=== PATIENT | female | born 1950 | race Hispanic/Latino ===

== ENCOUNTER 2018-03-01 09:12 | Day surgery (SDC) | payer MEDICARE, OTHER ==
[2018-03-01] MEDS ORDERED: Propofol 10 mg/ml Inj (20 ML) ONE ×2 (10:32→11:16)
[2018-03-01 11:49] VITALS: TEMP 97.3
[2018-03-01 12:02] VITALS: O2SAT 99
[2018-03-01 12:31] VITALS: BP 128/59; PULSE 54; RESP 12
== END 2018-03-01 12:30 | disposition home or self-care (01) ==
LOC: C.ENDO 09:12
PROVIDERS: ATTEND Internal Medicine Gastroenterology
DX: Z12.11 Encounter for screening for malignant neoplasm of colon (principal); D12.2 Benign neoplasm of ascending colon; D12.0 Benign neoplasm of cecum; D12.7 Benign neoplasm of rectosigmoid junction; D12.3 Benign neoplasm of transverse colon; K64.8 Other hemorrhoids
CPT/HCPCS: 45380; 45385; 88305; J2704

== ENCOUNTER 2018-05-25 06:36 | Day surgery (SDC) | payer MEDICARE, OTHER ==
[2018-05-25] MEDS ORDERED: Propofol 10 mg/ml Inj (20 ML) ONE ×2 (07:51→08:26)
[2018-05-25] MEDS ORDERED: Lidocaine Hydrochloride 5 ML INJ ONE (07:51)
--- NOTE | 2018-05-25 08:02 | CP.SDSHP ---
Same Day Surgery H & P - History Proposed Procedure: colonoscopy Pre-Op Diagnosis: history of colon polyps - Allergies Allergies: Allergies Penicillins Allergy (Verified 03/01/18 09:46) REDNESS - Physical Exam General Appearance: NAD Vital Signs: Vital Signs 05/25/18 06:48 Temperature 97.1 F L Pulse Rate 67 Respiratory 19 Rate Blood Pressure 119/73 O2 Sat by Pulse 99 Oximetry Mental Status: Alert & Oriented x3 Neuro: WNL Heart: WNL Lungs: WNL GI: WNL - {Optional Preform as Required} Abdomen: WNL - Impression Pt. Evaluated Today:Candidate for Anesthesia & Procedure: Yes - Date & Time Date: 05/25/18 Time: 08:02 Short Stay Discharge - Short Stay Discharge Admitting Diagnosis/Reason for Visit: H/O COLON POLYPS Disposition: HOME/ ROUTINE
[2018-05-25] MEDS ORDERED: Lactated Ringer's 1,000 ML IV ONE (08:05)
[2018-05-25] MEDS ORDERED: Lactated Ringer's 500 ML IV SCH (08:15)
[2018-05-25 08:54] VITALS: O2SAT 100
[2018-05-25 09:29] VITALS: PULSE 60
[2018-05-25 10:00] VITALS: BP 119/62; RESP 14; TEMP 97.2
== END 2018-05-25 09:55 | disposition home or self-care (01) ==
LOC: C.ENDO 06:36
PROVIDERS: ATTEND Internal Medicine Gastroenterology
DX: Z86.010 Personal history of colon polyps (principal); D12.2 Benign neoplasm of ascending colon; D12.3 Benign neoplasm of transverse colon; K64.8 Other hemorrhoids
CPT/HCPCS: 45380; 45385; 88305; J2704; J3010; J7120

== ENCOUNTER 2018-06-02 01:21 | Inpatient (IN) | payer MEDICARE, OTHER ==
[2018-06-02] MEDS ORDERED: Sodium Chloride 0.9% 1,000 ML IV ONE (02:01)
[2018-06-02] MEDS ORDERED: Pantoprazole 80 MG in Sodium Chloride 0.9% 100 ML IV STA (02:01)
--- NOTE | 2018-06-02 02:01 | C.PDOC ---
History Of Present Illness Patient presents to the ER with a complaint of rectal bleeding. Patient had a colonoscopy a week ago and is scheduled for partial colon removal for large transverse polyp with Dr. Segovia. She reports tonight having an episode of bright red blood per rectum. Denies fever, chills, nausea, vomiting, or pain. Time Seen by Provider: 06/02/18 01:55 Chief Complaint (Nursing): GI Problem History Per: Patient History/Exam Limitations: no limitations Onset/Duration Of Symptoms: Days Current Symptoms Are (Timing): Still Present Number Of Bleeding Episodes: Multiple: (3) Amount of Blood Loss: Large Severity: Moderate Pain Scale Rating Of: 4 Quality Of Discomfort: Unable To Describe Associated Symptoms: Rectal Bleeding. denies: Nausea, Vomiting, Other (Fever, Chills) Modifying Factors: None Recent travel outside of the [place]: No Additional History Per: Patient Past Medical History Reviewed: Historical Data, Nursing Documentation, Vital Signs Vital Signs: Last Vital Signs Temp 98.3 F 06/02/18 01:35 Pulse 65 06/02/18 01:35 Resp 16 06/02/18 01:35 BP 142/65 06/02/18 01:35 Pulse Ox 100 06/02/18 01:35 - Medical History PMH: Colonic Polyps Denies: Chronic Kidney Disease Family History: States: Unknown Family Hx - Social History Hx Alcohol Use: No Hx Substance Use: No Review Of Systems Constitutional: Negative for: Fever, Chills Cardiovascular: Negative for: Chest Pain, Palpitations Respiratory: Negative for: Cough, Shortness of Breath Gastrointestinal: Positive for: Other (Rectal bleeding). Negative for: Nausea, Vomiting, Abdominal Pain Neurological: Negative for: Weakness, Numbness Physical Exam - Physical Exam Appears: Non-toxic Skin: Warm, Dry Head: Normacephalic Eye(s): bilateral: Normal Inspection Oral Mucosa: Moist Neck: Trachea Midline, Supple Chest: Symmetrical, No Tenderness Cardiovascular: Rhythm Regular Respiratory: No Rales, No Rhonchi, No Wheezing Gastrointestinal/Abdominal: Soft, No Tenderness Rectal: Heme Positive, No Tenderness, Other (brbpr) Back: No CVA Tenderness Extremity: Normal ROM Extremity: Bilateral: Atraumatic Pulses: Left Dorsalis Pedis: Normal, Right Dorsalis Pedis: Normal Neurological/Psych: Oriented x3 Gait: Steady ED Course And Treatment - Laboratory Results Result Diagrams: 06/02/18 02:31 06/02/18 02:31 ECG: Interpreted By Me, Viewed By Me ECG Rhythm: Sinus Rhythm, Nonspecific Changes O2 Sat by Pulse Oximetry: 100 (Room air) Pulse Ox Interpretation: Normal Progress Note: Blood work, EKG, urinalysis, and occult blood test ordered. Protonix and IV fluids administered. Disposition Discussed With Dr.: Michael Gonsales Comment: accepted the patient onhis service and took over the care at 3:30 AM Doctor Will See Patient In The: ED Counseled Patient/Family Regarding: Studies Performed, Diagnosis - Disposition Disposition: HOSPITALIZED Disposition Time: 02:00 Condition: GUARDED Forms: [facility] ([place]) - POA Present On Arrival: None - Clinical Impression Clinical Impression: Lower GI bleed - Scribe Statement The provider has reviewed the documentation as recorded by the Scribe Matteo Andres All medical record entries made by the Scribe were at my direction and personally dictated by me. I have reviewed the chart and agree that the record accurately reflects my personal performance of the history, physical exam, medical decision making, and the department course for this patient. I have also personally directed, reviewed, and agree with the discharge instructions and disposition. Decision To Admit - Pt Status Changed To: Hospital Disposition Of: Inpatient - Admit Certification Admit to Inpatient:: After my assessment, the patient will require hos pitalization for at least two midnights. This is because of the severity of symptoms shown, intensity of services needed, and/or the medical risk in this patient being treated as an outpatient. - InPatient: Physician Admission Certification: I certify that this patient requires 2 or more midnights of care for the following reason:: After my assessment, the p atient will require hospitalization for at least two midnights. This is because of the severity of symptoms shown, intensity of services needed, and/or the medical risk in this patient being treated as an outpatient. - . Bed Request Type: Telemetry Admitting Physician: Michael Gonsales Patient Diagnosis: Lower GI bleed
[2018-06-02] MEDS ORDERED: Sodium Chloride 0.9% 1,000 ML ONE (02:10)
[2018-06-02 02:44] LABS: BASO # 0.1 K/uL (0.0-0.2); BASO % 0.6 % (0.0-2.0); EOS # 0.1 K/uL (0.0-0.7); EOS % 1.2 % (0.0-4.0); LYMPH # 2.5 K/uL (1.0-4.3); MEAN CELL VOLUME 87.7 fL (81.0-99.0); MEAN CORPUSCULAR HEMOGLOBIN 28.8 pg (27.0-31.0); MEAN CORPUSCULAR HGB CONC 32.8 g/dL (33.0-37.0); MEAN PLATELET VOLUME 9.7 fL (7.2-11.7); MONO # 0.5 K/uL (0.0-0.8); MONO % 5.9 % (0.0-10.0); NEUT # 5.5 K/uL (1.8-7.0); NEUT % 63.3 % (50.0-75.0); RBC 4.53 Mil/uL (3.80-5.20); RED CELL DISTRIBUTION WIDTH 13.6 % (11.5-14.5); SQUAMOUS EPITHIAL < 1 /hpf (0-5); URINE BILIRUBIN NEGATIVE (NEGATIVE); URINE BLOOD NEGATIVE (NEGATIVE); URINE CLARITY Clear (Clear); URINE COLOR Straw (YELLOW); URINE GLUCOSE (UA) NORMAL (Normal); URINE LEUKOCYTE ESTERASE NEG Leu/uL (Negative); URINE PROTEIN NEGATIVE (NEGATIVE); URINE UROBILINOGEN NORMAL mg/dL (0.2-1.0); WHITE BLOOD COUNT 8.8 K/uL (4.8-10.8)
[2018-06-02 03:04] LABS: INR 1.1; PROTHROMBIN TIME 11.7 SECONDS (9.7-12.2)
[2018-06-02 03:16] LABS: ALB/GLOB RATIO 1.6 (1.0-2.1); ALT/SGPT 19 U/L (9-52); AST/SGOT 16 U/L (14-36); BLOOD UREA NITROGEN 22 mg/dL (7-17); CALCIUM 8.3 mg/dl (8.6-10.4); GFR NON-AFRICAN AMERICAN > 60
--- NOTE | 2018-06-02 03:43 | CP.PCM.HP ---
<[employer]okiMu - Last Filed: 06/02/18 04:24> History of Present Illness - History of Present Illness History of Present Illness: PGY-1 History and Physical for Dr. Gonsales Patient is a 67 year old female with past medical history of colonic polyps presenting to the ED with 2 episodes of bright red blood per rectum that began at 11pm. Of note, patient had a colonoscopy performed last week by Dr. Zepeda and is scheduled for partial colon removal for large sessile transverse polyp with Dr. Segovia on Tuesday. No other bleeding episode noted prior to tonight or acute somatic pain. Patient denies any fevers/chills, headaches, dizziness, changes in vision, chest pain, palpitations, sob, cough, abdominal pain, n/v/d/c, dysuria, melena. 12 pt ROS reviewed and otherwise negative. PMHx: colonic polyps PSHx: colonoscopy (05/25/18), scheduled for partial colon removal for large sessile transverse polyp on Tuesday Allergies: PCN--redness Home Medications: None Family hx: unknown Social Hx: Denies alcohol, tobacco, illicit drug use Present on Admission - Present on Admission Any Indicators Present on Admission: No Review of Systems - Review of Systems All systems: reviewed and no additional remarkable complaints except Review of Systems: as per HPI Past Patient History - Past Medical History & Family History Past Medical History?: Yes - Past Social History Smoking Status: Never Smoked - CARDIAC Hx Cardiac Disorders: Yes Hx Angina: Yes (TIETZE'S DISEASE) Other/Comment: PT STATES SHE HAD A HISTORY OF PVC ,10 YEARS AGO, ON NO MED. HAD STRESS/ CARDIAC WORKUP. - PULMONARY Hx Respiratory Disorders: Yes (SOME NIGHT DYSPNEA) - NEUROLOGICAL Hx Neurological Disorder: Yes Hx Vertigo: Yes - HEENT Hx HEENT Problems: No - RENAL Hx Chronic Kidney Disease: No - ENDOCRINE/METABOLIC Hx Endocrine Disorders: No - HEMATOLOGICAL/ONCOLOGICAL Hx Blood Disorders: No - INTEGUMENTARY Hx Dermatological Problems: No - GASTROINTESTINAL Hx Gastrointestinal Disorders: Yes - GENITOURINARY/GYNECOLOGICAL Hx Genitourinary Disorders: No - PSYCHIATRIC Hx Substance Use: No - SURGICAL HISTORY Hx Surgeries: Yes Other/Comment: DENTAL WORK - ANESTHESIA Hx Anesthesia: Yes Hx Anesthesia Reactions: No Hx Malignant Hyperthermia: No Meds Allergies/Adverse Reactions: Allergies Allergy/AdvReac Type Severity Reaction Status Date / Time Penicillins Allergy REDNESS Verified 06/02/18 01:40 Physical Exam - Constitutional Appears: Non-toxic, No Acute Distress - Head Exam Head Exam: ATRAUMATIC, NORMAL INSPECTION, NORMOCEPHALIC - Eye Exam Eye Exam: EOMI, Normal appearance, PERRL Pupil Exam: NORMAL ACCOMODATION - ENT Exam ENT Exam: Mucous Membranes Moist, Normal Exam - Neck Exam Neck exam: Positive for: Full Rom, Normal Inspection. Negative for: Tenderness - Respiratory Exam Respiratory Exam: Clear to Auscultation Bilateral, NORMAL BREATHING PATTERN. absent: Accessory Muscle Use, Rales, Rhonchi, Wheezes, Respiratory Distress, Stridor - Cardiovascular Exam Cardiovascular Exam: REGULAR RHYTHM, +S1, +S2 - GI/Abdominal Exam GI & Abdominal Exam: Normal Bowel Sounds, Soft. absent: Distended, Firm, Guarding, Organomegaly, Rebound, Rigid, Tenderness - Rectal Exam Rectal Exam: Bloody Stool, NORMAL INSPECTION. absent: Hemorrhoids - Extremities Exam Extremities exam: Positive for: normal capillary refill, normal inspection, pedal pulses present. Negative for: calf tenderness, pedal edema - Back Exam Back exam: NORMAL INSPECTION - Neurological Exam Neurological exam: Alert, CN II-XII Intact, Oriented x3 - Psychiatric Exam Psychiatric exam: Normal Affect, Normal Mood - Skin Skin Exam: Dry, Intact, Normal Color, Warm Results - Vital Signs Recent Vital Signs: Last Vital Signs Temp 98.3 F 06/02/18 01:35 Pulse 65 06/02/18 01:35 Resp 16 06/02/18 01:35 BP 142/65 06/02/18 01:35 Pulse Ox 100 06/02/18 03:32 - Labs Result Diagrams: 06/02/18 02:31 06/02/18 02:31 Labs: Laboratory Results - last 24 hr 06/02/18 06/02/18 06/02/18 02:01 02:31 02:31 WBC 8.8 RBC 4.53 Hgb 13.0 Hct 39.7 MCV 87.7 MCH 28.8 MCHC 32.8 L RDW 13.6 Plt Count 193 MPV 9.7 Neut % (Auto) 63.3 Lymph % (Auto) 29.0 [place] % (Auto) 5.9 Eos % (Auto) 1.2 Baso % (Auto) 0.6 Neut # (Auto) 5.5 Lymph # (Auto) 2.5 [place] # (Auto) 0.5 Eos # (Auto) 0.1 Baso # (Auto) 0.1 PT 11.7 INR 1.1 APTT 31 Sodium Potassium Chloride Carbon Dioxide Anion Gap BUN Creatinine Est GFR ( Amer) Est GFR (Non-Af Amer) Random Glucose Calcium Total Bilirubin AST ALT Alkaline Phosphatase Total Protein Albumin Globulin Albumin/Globulin Ratio Urine Color Urine Clarity Urine pH Ur Specific [place] Urine Protein Urine Glucose (UA) Urine Ketones Urine Blood Urine Nitrate Urine Bilirubin Urine Urobilinogen Ur Leukocyte Esterase Urine RBC (Auto) Ur Squamous Epith Cells Stool Occult Blood Positive H 06/02/18 06/02/18 02:31 02:31 WBC RBC Hgb Hct MCV MCH MCHC RDW Plt Count MPV Neut % (Auto) Lymph % (Auto) [place] % (Auto) Eos % (Auto) Baso % (Auto) Neut # (Auto) Lymph # (Auto) [place] # (Auto) Eos # (Auto) Baso # (Auto) PT INR APTT Sodium 136 Potassium 4.1 Chloride 103 Carbon Dioxide 28 Anion Gap 10 BUN 22 H Creatinine 0.8 Est GFR ( Amer) > 60 Est GFR (Non-Af Amer) > 60 Random Glucose 100 Calcium 8.3 L Total Bilirubin 0.3 AST 16 ALT 19 Alkaline Phosphatase 124 Total Protein 6.5 Albumin 4.0 Globulin 2.5 Albumin/Globulin Ratio 1.6 Urine Color Straw Urine Clarity Clear Urine pH 5.0 Ur Specific [place] 1.014 Urine Protein Negative Urine Glucose (UA) Normal Urine Ketones Negative Urine Blood Negative Urine Nitrate Negative Urine Bilirubin Negative Urine Urobilinogen Normal Ur Leukocyte Esterase Neg Urine RBC (Auto) < 1 Ur Squamous Epith Cells < 1 Stool Occult Blood Assessment & Plan - Assessment and Plan (Free Text) Assessment: 67 year old female with pmhx of colonic polyps presenting to ED with new onset bright red blood per rectum that began earlier today. Plan: Lower GI bleed -H/H stable -vs snl -PT/INR wnl -FOBT positive -EKG: NSR at 64 bpm -telemetry monitoring -repeat FOBT -type and screen -am labs, continue to monitor H/H -clear liquid diet -GI (Dr. Zepeda) consulted -Surgery (Dr. Segovia) consulted Hx colonic polyps PPx, Diet, Disposition -DVT ppx: scds, chemical anticoagulation held 2/2 bleeding episode -GI ppx: protonix -Diet: NPO Case discussed with Dr. Ilda Telles DO, PGY-1 <Michael Gonsales P - Last Filed: 06/02/18 08:19> Results - Vital Signs Recent Vital Signs: Last Vital Signs Temp 98.4 F 06/02/18 07:51 Pulse 69 06/02/18 07:51 Resp 20 06/02/18 07:51 BP 123/75 06/02/18 07:51 Pulse Ox 97 06/02/18 07:51 - Labs Result Diagrams: 06/02/18 02:31 06/02/18 02:31 Labs: Laboratory Results - last 24 hr 06/02/18 06/02/18 06/02/18 02:01 02:31 02:31 WBC 8.8 RBC 4.53 Hgb 13.0 Hct 39.7 MCV 87.7 MCH 28.8 MCHC 32.8 L RDW 13.6 Plt Count 193 MPV 9.7 Neut % (Auto) 63.3 Lymph % (Auto) 29.0 [place] % (Auto) 5.9 Eos % (Auto) 1.2 Baso % (Auto) 0.6 Neut # (Auto) 5.5 Lymph # (Auto) 2.5 [place] # (Auto) 0.5 Eos # (Auto) 0.1 Baso # (Auto) 0.1 PT 11.7 INR 1.1 APTT 31 Sodium Potassium Chloride Carbon Dioxide Anion Gap BUN Creatinine Est GFR ( Amer) Est GFR (Non-Af Amer) Random Glucose Calcium Total Bilirubin AST ALT Alkaline Phosphatase Total Protein Albumin Globulin Albumin/Globulin Ratio Urine Color Urine Clarity Urine pH Ur Specific [place] Urine Protein Urine Glucose (UA) Urine Ketones Urine Blood Urine Nitrate Urine Bilirubin Urine Urobilinogen Ur Leukocyte Esterase Urine RBC (Auto) Ur Squamous Epith Cells Stool Occult Blood Positive H Blood Type Antibody Screen 06/02/18 06/02/18 06/02/18 02:31 02:31 02:31 WBC RBC Hgb Hct MCV MCH MCHC RDW Plt Count MPV Neut % (Auto) Lymph % (Auto) [place] % (Auto) Eos % (Auto) Baso % (Auto) Neut # (Auto) Lymph # (Auto) [place] # (Auto) Eos # (Auto) Baso # (Auto) PT INR APTT Sodium 136 Potassium 4.1 Chloride 103 Carbon Dioxide 28 Anion Gap 10 BUN 22 H Creatinine 0.8 Est GFR ( Amer) > 60 Est GFR (Non-Af Amer) > 60 Random Glucose 100 Calcium 8.3 L Total Bilirubin 0.3 AST 16 ALT 19 Alkaline Phosphatase 124 Total Protein 6.5 Albumin 4.0 Globulin 2.5 Albumin/Globulin Ratio 1.6 Urine Color Straw Urine Clarity Clear Urine pH 5.0 Ur Specific [place] 1.014 Urine Protein Negative Urine Glucose (UA) Normal Urine Ketones Negative Urine Blood Negative Urine Nitrate Negative Urine Bilirubin Negative Urine Urobilinogen Normal Ur Leukocyte Esterase Neg Urine RBC (Auto) < 1 Ur Squamous Epith Cells < 1 Stool Occult Blood Blood Type O POSITIVE Antibody Screen Negative Attending/Attestation - Attestation I have personally seen and examined this patient.: Yes I have fully participated in the care of the patient.: Yes I have reviewed all pertinent clinical information: Yes Notes (Text): 06/02/18 08:18 3 episodes of bright red blood, recent tattooing of the rectal poly for surgical resection, hemodyanamically stable, plan surgery and gi eval, observe for recurrent bleeding. See orders for detail.
[2018-06-02] MEDS ORDERED: Sodium Chloride 0.9% 1,000 ML IV SCH (04:00)
--- NOTE | 2018-06-02 08:00 | CP.PCM.PN ---
Subjective - Date & Time of Evaluation Date of Evaluation: 06/02/18 Time of Evaluation: 08:00 - Subjective Subjective: PGY-1 Alla Doherty D.O. Medicine progress for for Dr. Arenas's service: Patient was seen and examined this morning. Today patient reports that she is tired as she did not get a lot of sleep last night due to commotion in the ED. She reports two additional incidents this morning of bright red blood in the toilet but reports that the blood quantity seems to be subsiding every time she uses the bathroom. Patient denies fever, chills, headaches, dizziness, vision changes, chest pain, palpitations, SOB, cough, abdominal pain, n/v, d/c, dysuria, melena. Objective - Vital Signs/Intake and Output Vital Signs (last 24 hours): Temp Pulse Resp BP Pulse Ox 98.4 F 69 20 123/75 97 06/02/18 07:51 06/02/18 07:51 06/02/18 07:51 06/02/18 07:51 06/02/18 07:51 - Medications Medications: Current Medications Pantoprazole Sodium (Protonix Inj) 40 mg IVP DAILY BILL - Labs Labs: 06/02/18 02:31 06/02/18 02:31 PT 11.7 SECONDS (9.7-12.2) 06/02/18 02:31 INR 1.1 06/02/18 02:31 APTT 31 SECONDS (21-34) 06/02/18 02:31 - Constitutional Appears: Non-toxic, No Acute Distress - Head Exam Head Exam: ATRAUMATIC, NORMAL INSPECTION - Eye Exam Eye Exam: EOMI, Normal appearance, PERRL - ENT Exam ENT Exam: Mucous Membranes Moist - Neck Exam Neck Exam: Normal Inspection - Respiratory Exam Respiratory Exam: Clear to Ausculation Bilateral, NORMAL BREATHING PATTERN - Cardiovascular Exam Cardiovascular Exam: RRR, +S1, +S2. absent: Tachycardia - GI/Abdominal Exam GI & Abdominal Exam: Soft. absent: Distended, Tenderness - Rectal Exam Rectal Exam: Deferred (by patient) - Extremities Exam Extremities Exam: Normal Inspection. absent: Pedal Edema - Back Exam Back Exam: NORMAL INSPECTION - Neurological Exam Neurological Exam: Alert, Awake, CN II-XII Intact, Normal Gait, Oriented x3 - Psychiatric Exam Psychiatric exam: Normal Affect, Normal Mood - Skin Skin Exam: Dry, Normal Color, Warm Assessment and Plan - Assessment and Plan (Free Text) Assessment: Patient is a 67 yo female who presented with bright red blood per rectum. Patient had a colonoscopy last week that found an unresectable sessile polyp. Patient scheduled to have surgery on Tuesday. Plan: Bright red blood per rectum- likely 2/2 sessile polyp (colonoscopy on 05/25/18) - Hgb wnl (13) on admission - PT/INR/PTT wnl - FOBT positive - HR and BP wnl - Monitor H&H and vitals - Clear liquids - Surgery consulted (Juliette)- colon resection Monday 06/05 - GI consulted (Duane)- monitor overnight, DC if bleeding resolves, if not may need scope prior to operation Ppx: VTE: SCDs, chemical anticoag contraindicated GI: PTX 40 mg IV daily Code status: full code Case discussed with attending, Dr. Arenas.
--- NOTE | 2018-06-02 08:12 | CP.PCM.CON ---
History of Present Illness - History of Present Illness History of Present Illness: Surgery Consult Note for Dr. Segovia Consult: GI Bleed HPI: 67 year old female, no significant past medical history, consulted for GI bleed. Patient states she had her first colonoscopy in February that showed a few polyps and one large sessile polyp that was unable to be removed. Surgery was scheduled for the mass in May. Patient had a repeat colonoscopy to tattoo mass earlier last week. Yesterday she noticed bright red blood per rectum with bowel movement. She has not had any further bleeding episodes while in the ER. Patient did not require transfusions. Denies any abdominal pain, nausea, vomiting, cramping, diarrhea, or constipation. She is tolerating her diet. She is scheduled for surgery Tuesday06/05/18 for removal of mass. PMH: Denies PSH: Colonoscopy (02/2018) FH: Noncontributory SH: Social drinker, denies tobacco or substance abuse ALL: PCNs Meds: See MAR Review of Systems - Constitutional Constitutional: absent: Chills, Fever, Weakness - EENT Eyes: absent: Blurred Vision, Change in Vision Nose/Mouth/Throat: absent: Nasal Congestion, Nasal Discharge - Cardiovascular Cardiovascular: absent: Chest Pain, Dyspnea - Respiratory Respiratory: absent: Cough, Dyspnea - Gastrointestinal Gastrointestinal: absent: Abdominal Pain, Nausea, Vomiting - Genitourinary Genitourinary: absent: Difficulty Urinating, Dysuria - Musculoskeletal Musculoskeletal: absent: Back Pain, Neck Pain - Integumentary Integumentary: absent: Bleeding Lesions, Changing Lesions - Neurological Neurological: absent: Confusion, Dizziness - Psychiatric Psychiatric: absent: Anxiety, Depression Past Patient History - Past Medical History & Family History Past Medical History?: Yes - Past Social History Smoking Status: Never Smoked - CARDIAC Hx Cardiac Disorders: Yes Hx Angina: Yes (TIETZE'S DISEASE) Other/Comment: PT STATES SHE HAD A HISTORY OF PVC ,10 YEARS AGO, ON NO MED. HAD STRESS/ CARDIAC WORKUP. - PULMONARY Hx Respiratory Disorders: Yes (SOME NIGHT DYSPNEA) - NEUROLOGICAL Hx Neurological Disorder: Yes Hx Vertigo: Yes - HEENT Hx HEENT Problems: No - RENAL Hx Chronic Kidney Disease: No - ENDOCRINE/METABOLIC Hx Endocrine Disorders: No - HEMATOLOGICAL/ONCOLOGICAL Hx Blood Disorders: No - INTEGUMENTARY Hx Dermatological Problems: No - GASTROINTESTINAL Hx Gastrointestinal Disorders: Yes - GENITOURINARY/GYNECOLOGICAL Hx Genitourinary Disorders: No - PSYCHIATRIC Hx Substance Use: No - SURGICAL HISTORY Hx Surgeries: Yes Other/Comment: DENTAL WORK - ANESTHESIA Hx Anesthesia: Yes Hx Anesthesia Reactions: No Hx Malignant Hyperthermia: No Meds Allergies/Adverse Reactions: Allergies Allergy/AdvReac Type Severity Reaction Status Date / Time Penicillins Allergy REDNESS Verified 06/02/18 01:40 - Medications Medications: Current Medications Pantoprazole Sodium (Protonix Inj) 40 mg IVP DAILY BILL Physical Exam - Constitutional Appears: Well, Non-toxic, No Acute Distress - Head Exam Head Exam: ATRAUMATIC, NORMAL INSPECTION, NORMOCEPHALIC - Eye Exam Eye Exam: EOMI - ENT Exam ENT Exam: Mucous Membranes Moist - Respiratory Exam Respiratory Exam: NORMAL BREATHING PATTERN. absent: Respiratory Distress - Cardiovascular Exam Cardiovascular Exam: REGULAR RHYTHM. absent: Tachycardia - GI/Abdominal Exam GI & Abdominal Exam: Normal Bowel Sounds, Soft. absent: Distended, Guarding, Rebound, Tenderness - Neurological Exam Neurological exam: Alert, Oriented x3 - Psychiatric Exam Psychiatric exam: Normal Affect, Normal Mood - Skin Skin Exam: Dry, Intact, Normal Color, Warm Results - Vital Signs Recent Vital Signs: Last Vital Signs Temp 98.4 F 06/02/18 07:51 Pulse 69 06/02/18 07:51 Resp 20 06/02/18 07:51 BP 123/75 06/02/18 07:51 Pulse Ox 97 06/02/18 07:51 - Labs Result Diagrams: 06/02/18 02:31 06/02/18 02:31 Labs: Laboratory Results - last 24 hr 06/02/18 06/02/18 06/02/18 02:01 02:31 02:31 WBC 8.8 RBC 4.53 Hgb 13.0 Hct 39.7 MCV 87.7 MCH 28.8 MCHC 32.8 L RDW 13.6 Plt Count 193 MPV 9.7 Neut % (Auto) 63.3 Lymph % (Auto) 29.0 [place] % (Auto) 5.9 Eos % (Auto) 1.2 Baso % (Auto) 0.6 Neut # (Auto) 5.5 Lymph # (Auto) 2.5 [place] # (Auto) 0.5 Eos # (Auto) 0.1 Baso # (Auto) 0.1 PT 11.7 INR 1.1 APTT 31 Sodium Potassium Chloride Carbon Dioxide Anion Gap BUN Creatinine Est GFR ( Amer) Est GFR (Non-Af Amer) Random Glucose Calcium Total Bilirubin AST ALT Alkaline Phosphatase Total Protein Albumin Globulin Albumin/Globulin Ratio Urine Color Urine Clarity Urine pH Ur Specific [place] Urine Protein Urine Glucose (UA) Urine Ketones Urine Blood Urine Nitrate Urine Bilirubin Urine Urobilinogen Ur Leukocyte Esterase Urine RBC (Auto) Ur Squamous Epith Cells Stool Occult Blood Positive H Blood Type Antibody Screen 06/02/18 06/02/18 06/02/18 02:31 02:31 02:31 WBC RBC Hgb Hct MCV MCH MCHC RDW Plt Count MPV Neut % (Auto) Lymph % (Auto) [place] % (Auto) Eos % (Auto) Baso % (Auto) Neut # (Auto) Lymph # (Auto) [place] # (Auto) Eos # (Auto) Baso # (Auto) PT INR APTT Sodium 136 Potassium 4.1 Chloride 103 Carbon Dioxide 28 Anion Gap 10 BUN 22 H Creatinine 0.8 Est GFR ( Amer) > 60 Est GFR (Non-Af Amer) > 60 Random Glucose 100 Calcium 8.3 L Total Bilirubin 0.3 AST 16 ALT 19 Alkaline Phosphatase 124 Total Protein 6.5 Albumin 4.0 Globulin 2.5 Albumin/Globulin Ratio 1.6 Urine Color Straw Urine Clarity Clear Urine pH 5.0 Ur Specific [place] 1.014 Urine Protein Negative Urine Glucose (UA) Normal Urine Ketones Negative Urine Blood Negative Urine Nitrate Negative Urine Bilirubin Negative Urine Urobilinogen Normal Ur Leukocyte Esterase Neg Urine RBC (Auto) < 1 Ur Squamous Epith Cells < 1 Stool Occult Blood Blood Type O POSITIVE Antibody Screen Negative Assessment & Plan - Assessment and Plan (Free Text) Assessment: 67F w/ episode of GI bleed Plan: Monitor H/H Transfuse as needed Monitor for repeat bleeding episodes Will D/w Dr. Juliette Sterling PGY1
--- NOTE | 2018-06-02 09:34 | CP.PCM.CON ---
<Meño Torres - Last Filed: 06/02/18 13:28> History of Present Illness - History of Present Illness History of Present Illness: GI fellow PGY4, consult note. Naima Dhillon is a very pleasant 67F presenting with bright red blood per rectum. The rectal bleeding started yesterday afternoon. She had 2 episode lastnight. The second episode was less blood than the first. She has not a had any bleeding since hospital admission. Importantly, she had colonoscopy 05/25/18 with hot snare of a 20mm serrated adenoma at the transverse colon. She is schedule for partial colectomy on Tuesday. She denies syncope, abdominal pain, fever, nausea, vomiting. She denies taking NSAIDs, OAC, plavix. On admission Labs showed normal WBC level. Hb normal. PMHx - Several tubular adenomas. Takes no medication. PSHx - Colonoscopy x2 FMHx - no primary relatives with GI cancers SocHx- Denies alcohol, tobacco. 12pt ROS completed and negative except for above. Past Patient History - Past Medical History & Family History Past Medical History?: Yes - Past Social History Smoking Status: Never Smoked - CARDIAC Hx Cardiac Disorders: Yes Hx Angina: Yes (TIETZE'S DISEASE) Other/Comment: PT STATES SHE HAD A HISTORY OF PVC ,10 YEARS AGO, ON NO MED. HAD STRESS/ CARDIAC WORKUP. - PULMONARY Hx Respiratory Disorders: Yes (SOME NIGHT DYSPNEA) - NEUROLOGICAL Hx Neurological Disorder: Yes Hx Vertigo: Yes - HEENT Hx HEENT Problems: No - RENAL Hx Chronic Kidney Disease: No - ENDOCRINE/METABOLIC Hx Endocrine Disorders: No - HEMATOLOGICAL/ONCOLOGICAL Hx Blood Disorders: No - INTEGUMENTARY Hx Dermatological Problems: No - GASTROINTESTINAL Hx Gastrointestinal Disorders: Yes - GENITOURINARY/GYNECOLOGICAL Hx Genitourinary Disorders: No - PSYCHIATRIC Hx Substance Use: No - SURGICAL HISTORY Hx Surgeries: Yes Other/Comment: DENTAL WORK - ANESTHESIA Hx Anesthesia: Yes Hx Anesthesia Reactions: No Hx Malignant Hyperthermia: No Meds Allergies/Adverse Reactions: Allergies Allergy/AdvReac Type Severity Reaction Status Date / Time Penicillins Allergy REDNESS Verified 06/02/18 01:40 - Medications Medications: Current Medications Pantoprazole Sodium (Protonix Inj) 40 mg IVP DAILY BILL Physical Exam - Constitutional Appears: Well, Non-toxic, No Acute Distress - Head Exam Head Exam: ATRAUMATIC, NORMAL INSPECTION - Eye Exam Eye Exam: EOMI, Normal appearance - ENT Exam ENT Exam: Mucous Membranes Moist, Normal Exam - Respiratory Exam Respiratory Exam: Clear to Auscultation Bilateral, NORMAL BREATHING PATTERN - Cardiovascular Exam Cardiovascular Exam: REGULAR RHYTHM, +S1, +S2 - GI/Abdominal Exam GI & Abdominal Exam: Normal Bowel Sounds, Soft. absent: Distended, Guarding, Organomegaly, Tenderness - Extremities Exam Extremities exam: Positive for: normal inspection. Negative for: pedal edema - Neurological Exam Neurological exam: Alert, CN II-XII Intact, Oriented x3 - Psychiatric Exam Psychiatric exam: Normal Affect, Normal Mood - Skin Skin Exam: Normal Color, Warm Results - Vital Signs Recent Vital Signs: Last Vital Signs Temp 98.4 F 06/02/18 07:51 Pulse 69 06/02/18 07:51 Resp 20 06/02/18 07:51 BP 123/75 06/02/18 07:51 Pulse Ox 97 06/02/18 07:51 - Labs Result Diagrams: 06/02/18 02:31 06/02/18 02:31 Labs: Laboratory Results - last 24 hr 06/02/18 06/02/18 06/02/18 02:01 02:31 02:31 WBC 8.8 RBC 4.53 Hgb 13.0 Hct 39.7 MCV 87.7 MCH 28.8 MCHC 32.8 L RDW 13.6 Plt Count 193 MPV 9.7 Neut % (Auto) 63.3 Lymph % (Auto) 29.0 [place] % (Auto) 5.9 Eos % (Auto) 1.2 Baso % (Auto) 0.6 Neut # (Auto) 5.5 Lymph # (Auto) 2.5 [place] # (Auto) 0.5 Eos # (Auto) 0.1 Baso # (Auto) 0.1 PT 11.7 INR 1.1 APTT 31 Sodium Potassium Chloride Carbon Dioxide Anion Gap BUN Creatinine Est GFR ( Amer) Est GFR (Non-Af Amer) Random Glucose Calcium Total Bilirubin AST ALT Alkaline Phosphatase Total Protein Albumin Globulin Albumin/Globulin Ratio Urine Color Urine Clarity Urine pH Ur Specific [place] Urine Protein Urine Glucose (UA) Urine Ketones Urine Blood Urine Nitrate Urine Bilirubin Urine Urobilinogen Ur Leukocyte Esterase Urine RBC (Auto) Ur Squamous Epith Cells Stool Occult Blood Positive H Blood Type Antibody Screen 06/02/18 06/02/18 06/02/18 02:31 02:31 02:31 WBC RBC Hgb Hct MCV MCH MCHC RDW Plt Count MPV Neut % (Auto) Lymph % (Auto) [place] % (Auto) Eos % (Auto) Baso % (Auto) Neut # (Auto) Lymph # (Auto) [place] # (Auto) Eos # (Auto) Baso # (Auto) PT INR APTT Sodium 136 Potassium 4.1 Chloride 103 Carbon Dioxide 28 Anion Gap 10 BUN 22 H Creatinine 0.8 Est GFR ( Amer) > 60 Est GFR (Non-Af Amer) > 60 Random Glucose 100 Calcium 8.3 L Total Bilirubin 0.3 AST 16 ALT 19 Alkaline Phosphatase 124 Total Protein 6.5 Albumin 4.0 Globulin 2.5 Albumin/Globulin Ratio 1.6 Urine Color Straw Urine Clarity Clear Urine pH 5.0 Ur Specific [place] 1.014 Urine Protein Negative Urine Glucose (UA) Normal Urine Ketones Negative Urine Blood Negative Urine Nitrate Negative Urine Bilirubin Negative Urine Urobilinogen Normal Ur Leukocyte Esterase Neg Urine RBC (Auto) < 1 Ur Squamous Epith Cells < 1 Stool Occult Blood Blood Type O POSITIVE Antibody Screen Negative Assessment & Plan - Assessment and Plan (Free Text) Assessment: #Postpolypectomy bleed #Large sessile serrated adenoma of transverse colon #Multiple tubular adenomas of the colon, less than 1 cm. PLAN: -Previous colonoscopies and pathologies reviewed -Continue to monitor for active bleeding, but appears to be resolving. -No abdominal pain, fever, leukocytosis -Plan for conservative management at this point -Possible surgery Tuesday. Surgeon consulted. -Continue CLD. -If no bleeding overnight and stable, patient can be discharged home with regular scheduling of surgery. -Case discussed with Dr. Zepeda, see attestation - Date & Time Date: 06/02/18 Time: 09:40 <Brad Zepeda Y - Last Filed: 06/02/18 14:01> Meds - Medications Medications: Current Medications Pantoprazole Sodium (Protonix Inj) 40 mg IVP DAILY [facility] Last Admin: 06/02/18 10:59 Dose: 40 mg Results - Vital Signs Recent Vital Signs: Last Vital Signs Temp 98.4 F 06/02/18 07:51 Pulse 73 06/02/18 08:30 Resp 20 06/02/18 07:51 BP 123/75 06/02/18 07:51 Pulse Ox 97 06/02/18 07:51 - Labs Result Diagrams: 06/02/18 02:31 06/02/18 02:31 Labs: Laboratory Results - last 24 hr 06/02/18 06/02/18 06/02/18 02:01 02:31 02:31 WBC 8.8 RBC 4.53 Hgb 13.0 Hct 39.7 MCV 87.7 MCH 28.8 MCHC 32.8 L RDW 13.6 Plt Count 193 MPV 9.7 Neut % (Auto) 63.3 Lymph % (Auto) 29.0 [place] % (Auto) 5.9 Eos % (Auto) 1.2 Baso % (Auto) 0.6 Neut # (Auto) 5.5 Lymph # (Auto) 2.5 [place] # (Auto) 0.5 Eos # (Auto) 0.1 Baso # (Auto) 0.1 PT 11.7 INR 1.1 APTT 31 Sodium Potassium Chloride Carbon Dioxide Anion Gap BUN Creatinine Est GFR ( Amer) Est GFR (Non-Af Amer) Random Glucose Calcium Total Bilirubin AST ALT Alkaline Phosphatase Total Protein Albumin Globulin Albumin/Globulin Ratio Urine Color Urine Clarity Urine pH Ur Specific [place] Urine Protein Urine Glucose (UA) Urine Ketones Urine Blood Urine Nitrate Urine Bilirubin Urine Urobilinogen Ur Leukocyte Esterase Urine RBC (Auto) Ur Squamous Epith Cells Stool Occult Blood Positive H Blood Type Antibody Screen 06/02/18 06/02/18 06/02/18 02:31 02:31 02:31 WBC RBC Hgb Hct MCV MCH MCHC RDW Plt Count MPV Neut % (Auto) Lymph % (Auto) [place] % (Auto) Eos % (Auto) Baso % (Auto) Neut # (Auto) Lymph # (Auto) [place] # (Auto) Eos # (Auto) Baso # (Auto) PT INR APTT Sodium 136 Potassium 4.1 Chloride 103 Carbon Dioxide 28 Anion Gap 10 BUN 22 H Creatinine 0.8 Est GFR ( Amer) > 60 Est GFR (Non-Af Amer) > 60 Random Glucose 100 Calcium 8.3 L Total Bilirubin 0.3 AST 16 ALT 19 Alkaline Phosphatase 124 Total Protein 6.5 Albumin 4.0 Globulin 2.5 Albumin/Globulin Ratio 1.6 Urine Color Straw Urine Clarity Clear Urine pH 5.0 Ur Specific [place] 1.014 Urine Protein Negative Urine Glucose (UA) Normal Urine Ketones Negative Urine Blood Negative Urine Nitrate Negative Urine Bilirubin Negative Urine Urobilinogen Normal Ur Leukocyte Esterase Neg Urine RBC (Auto) < 1 Ur Squamous Epith Cells < 1 Stool Occult Blood Blood Type O POSITIVE Antibody Screen Negative Attending/Attestation - Attestation I have personally seen and examined this patient.: Yes I have fully participated in the care of the patient.: Yes I have reviewed all pertinent clinical information: Yes Notes (Text): 06/02/18 13:56 I have seen and examined patient with GI fellow. Agree with above documentation with the following additions. In brief, this is a 67 year old female with history of adenomatous colon polyps, s/p recent colonoscopy last week with injection and partial polypectomy of large sessile transverse colon polypoid lesion. She presents to hospital with complaint of rectal bleeding which started yesterday. She denies associated abdominal pain, nausea, vomiting, fever/chills, weight loss. She has not had any significant recurrent bleeding since arrival to hospital. Review of vitals from today are normal. History of colon polyps s/p colonoscopy with partial polypectomy of large transverse colon polyp, s/p clip placement Rectal bleeding, possibly secondary to polypectomy site - Clear liquid diet as tolerated - Continue to monitor H/H - NSAID avoidance - Patient scheduled for partial colon resection of large endoscopically unresectable lesion on tuesday with Dr. Segovia - If no recurrent bleeding noted overnight, can likely discharge home with plan for outpatient surgical intervention on tuesday. Will continue to monitor clinical course.
[2018-06-02 15:59] VITALS: RESP 20
--- NOTE | 2018-06-03 07:51 | CP.PCM.PN ---
Subjective - Date & Time of Evaluation Date of Evaluation: 06/03/18 Time of Evaluation: 07:47 - Subjective Subjective: Surgery Progress Note for Dr. Pfeiffer 67F seen and evaluated at bedside this morning. No acute events overnight. No complaints this morning. No repeat episodes of bloody bowel movements. Denies f/c, n/v/d, SOB, chest pain, headaches, dizziness, or urinary symptoms. Objective - Vital Signs/Intake and Output Vital Signs (last 24 hours): Temp Pulse Resp BP Pulse Ox 98.1 F 59 L 20 125/78 99 06/02/18 23:35 06/03/18 07:29 06/02/18 23:35 06/02/18 23:35 06/02/18 23:35 - Medications Medications: Current Medications Pantoprazole Sodium (Protonix Inj) 40 mg IVP DAILY BILL Last Admin: 06/02/18 10:59 Dose: 40 mg - Labs Labs: 06/02/18 19:55 06/02/18 02:31 PT 11.7 SECONDS (9.7-12.2) 06/02/18 02:31 INR 1.1 06/02/18 02:31 APTT 31 SECONDS (21-34) 06/02/18 02:31 - Constitutional Appears: Well, Non-toxic, No Acute Distress - Head Exam Head Exam: ATRAUMATIC, NORMAL INSPECTION, NORMOCEPHALIC - Eye Exam Eye Exam: EOMI - ENT Exam ENT Exam: Mucous Membranes Moist - Respiratory Exam Respiratory Exam: NORMAL BREATHING PATTERN. absent: Respiratory Distress - Cardiovascular Exam Cardiovascular Exam: REGULAR RHYTHM. absent: Tachycardia - GI/Abdominal Exam GI & Abdominal Exam: Soft, Normal Bowel Sounds. absent: Tenderness - Rectal Exam Rectal Exam: absent: Bloody Stool - Neurological Exam Neurological Exam: Alert, Awake - Psychiatric Exam Psychiatric exam: Normal Affect, Normal Mood - Skin Skin Exam: Dry, Intact, Normal Color, Warm Assessment and Plan - Assessment and Plan (Free Text) Assessment: 67F w/ GI bleed, now resolved Plan: Pending AM labs If H/H stable, patient cleared for discharge from surgical standpoint Patient can follow up Tuesday for scheduled procedure w/ Dr. Segovia D/w Dr. Juliette Sterling PGY1
[2018-06-03 08:18] LABS: BASO % 0.6 % (0.0-2.0); EOS # 0.1 K/uL (0.0-0.7); EOS % 1.4 % (0.0-4.0); HEMOGLOBIN 12.5 g/dL (11.0-16.0); LYMPH # 1.5 K/uL (1.0-4.3); LYMPH % 28.6 % (20.0-40.0); MEAN CELL VOLUME 88.1 fL (81.0-99.0); MEAN CORPUSCULAR HEMOGLOBIN 29.4 pg (27.0-31.0); MEAN CORPUSCULAR HGB CONC 33.3 g/dL (33.0-37.0); MEAN PLATELET VOLUME 9.2 fL (7.2-11.7); MONO # 0.4 K/uL (0.0-0.8); MONO % 7.5 % (0.0-10.0); NEUT # 3.2 K/uL (1.8-7.0); NEUT % 61.9 % (50.0-75.0); NRBC % 0.1 % (0.0-2.0); RBC 4.26 Mil/uL (3.80-5.20); RED CELL DISTRIBUTION WIDTH 13.5 % (11.5-14.5); WHITE BLOOD COUNT 5.2 K/uL (4.8-10.8)
--- NOTE | 2018-06-03 08:35 | CP.PCM.DIS ---
<Alla Doherty - Last Filed: 06/03/18 13:59> Provider - Provider Date of Admission: 06/02/18 03:29 Attending physician: Mannie Arenas MD Consults: 06/02/18 04:27 Gastroenterology Consult Routine Comment: colonscopy performed last week with you Consulting Provider: Brad Zepeda Consulting Physician: Brad Zepeda Reason for Consult: lower GI bleed, large sessile transverse colonic polyp General Surgery Consult Routine Comment: Consulting Provider: Carroll Segovia Consulting Physician: Carroll Segovia Reason for Consult: lower GI bleed, large sessile transverse colonic polyp Time Spent in preparation of Discharge (in minutes): 45 Diagnosis - Discharge Diagnosis (1) Lower GI bleed Status: Resolved (2) Colon polyp Status: Chronic Priority: Medium Hospital Course - Lab Results Lab Results: Most Recent Lab Values WBC 5.2 K/uL (4.8-10.8) 06/03/18 08:00 RBC 4.26 Mil/uL (3.80-5.20) 06/03/18 08:00 Hgb 12.5 g/dL (11.0-16.0) 06/03/18 08:00 Hct 37.6 % (34.0-47.0) 06/03/18 08:00 MCV 88.1 fL (81.0-99.0) 06/03/18 08:00 MCH 29.4 pg (27.0-31.0) 06/03/18 08:00 MCHC 33.3 g/dL (33.0-37.0) 06/03/18 08:00 RDW 13.5 % (11.5-14.5) 06/03/18 08:00 Plt Count 165 K/uL (130-400) 06/03/18 08:00 MPV 9.2 fL (7.2-11.7) 06/03/18 08:00 Neut % (Auto) 61.9 % (50.0-75.0) 06/03/18 08:00 Lymph % (Auto) 28.6 % (20.0-40.0) 06/03/18 08:00 [place] % (Auto) 7.5 % (0.0-10.0) 06/03/18 08:00 Eos % (Auto) 1.4 % (0.0-4.0) 06/03/18 08:00 Baso % (Auto) 0.6 % (0.0-2.0) 06/03/18 08:00 Neut # (Auto) 3.2 K/uL (1.8-7.0) 06/03/18 08:00 Lymph # (Auto) 1.5 K/uL (1.0-4.3) 06/03/18 08:00 [place] # (Auto) 0.4 K/uL (0.0-0.8) 06/03/18 08:00 Eos # (Auto) 0.1 K/uL (0.0-0.7) 06/03/18 08:00 Baso # (Auto) 0.0 K/uL (0.0-0.2) 06/03/18 08:00 PT 11.7 SECONDS (9.7-12.2) 06/02/18 02:31 INR 1.1 06/02/18 02:31 APTT 31 SECONDS (21-34) 06/02/18 02:31 Sodium 136 mmol/L (132-148) 06/02/18 02:31 Potassium 4.1 mmol/L (3.6-5.2) 06/02/18 02:31 Chloride 103 mmol/L (98-107) 06/02/18 02:31 Carbon Dioxide 28 mmol/L (22-30) 06/02/18 02:31 Anion Gap 10 (10-20) 06/02/18 02:31 BUN 22 mg/dL (7-17) H 06/02/18 02:31 Creatinine 0.8 mg/dL (0.7-1.2) 06/02/18 02:31 Est GFR ( Amer) > 60 06/02/18 02:31 Est GFR (Non-Af Amer) > 60 06/02/18 02:31 Random Glucose 100 mg/dL (65-105) 06/02/18 02:31 Calcium 8.3 mg/dl (8.6-10.4) L 06/02/18 02:31 Total Bilirubin 0.3 mg/dL (0.2-1.3) 06/02/18 02:31 AST 16 U/L (14-36) 06/02/18 02:31 ALT 19 U/L (9-52) 06/02/18 02:31 Alkaline Phosphatase 124 U/L (38-126) 06/02/18 02:31 Total Protein 6.5 g/dL (6.3-8.3) 06/02/18 02:31 Albumin 4.0 g/dL (3.5-5.0) 06/02/18 02:31 Globulin 2.5 gm/dL (2.2-3.9) 06/02/18 02:31 Albumin/Globulin Ratio 1.6 (1.0-2.1) 06/02/18 02:31 Urine Color Straw (YELLOW) 06/02/18 02:31 Urine Clarity Clear (Clear) 06/02/18 02:31 Urine pH 5.0 (5.0-8.0) 06/02/18 02:31 Ur Specific [place] 1.014 (1.003-1.030) 06/02/18 02:31 Urine Protein Negative mg/dL (NEGATIVE) 06/02/18 02:31 Urine Glucose (UA) Normal mg/dL (Normal) 06/02/18 02:31 Urine Ketones Negative mg/dL (NEGATIVE) 06/02/18 02:31 Urine Blood Negative (NEGATIVE) 06/02/18 02:31 Urine Nitrate Negative (NEGATIVE) 06/02/18 02:31 Urine Bilirubin Negative (NEGATIVE) 06/02/18 02:31 Urine Urobilinogen Normal mg/dL (0.2-1.0) 06/02/18 02:31 Ur Leukocyte Esterase Neg [place]/uL (Negative) 06/02/18 02:31 Urine RBC (Auto) < 1 /hpf (0-3) 06/02/18 02:31 Ur Squamous Epith Cells < 1 /hpf (0-5) 06/02/18 02:31 Stool Occult Blood Positive (NEGATIVE) H 06/02/18 02:01 Blood Type O POSITIVE 06/02/18 02:31 Antibody Screen Negative 06/02/18 02:31 - Hospital Course Hospital Course: Patient is a 67 year old female with past medical history of colonic polyps presenting to the ED with 2 episodes of bright red blood per rectum that began at 11 pm that evening. Of note, patient had a colonoscopy performed last week (05/25/18) by Dr. Zepeda and is schedule for partial colon removal for large sessile transverse polyp with Dr. Segovia on Tuesday06/04/18. No other bleeding episodes noted prior to tonight or acute somatic pain. Patient denies any fevers/chills, headaches, dizziness, vision changes, chest pain, palpitations, SOB, cough, abdominal pain, n/v/d/c, dysuria, melena. Patient was started on Protonix 40 mg IVP daily. GI (Dr. Zepeda) and Surgery (Dr. Bob) were consulted. She reported 2 additional episodes of bright red blood per rectum in the morning of 06/02 that subsided without intervention. CBC was monitored and vitals were followed throughout hospital course and continued to remain stable and within normal limits. Upon discharge, patient reported no further rectal bleeding and no acute complaints. Patient will report back to [facility] on Tuesday for scheduled partial colon removal for large sessile transverse polyp with Dr. Segovia. Discharge Exam - Head Exam Head Exam: ATRAUMATIC, NORMAL INSPECTION, NORMOCEPHALIC - Eye Exam Eye Exam: EOMI, Normal appearance - ENT Exam ENT Exam: Mucous Membranes Moist - Neck Exam Neck exam: Normal Inspection - Respiratory Exam Respiratory Exam: Clear to PA & Lateral, NORMAL BREATHING PATTERN, UNREMARKABLE - Cardiovascular Exam Cardiovascular Exam: RRR, +S1, +S2 - GI/Abdominal Exam GI & Abdominal Exam: Normal Bowel Sounds, Soft, Unremarkable. absent: Distended, Tenderness - Extremities Exam Extremities exam: normal inspection - Back Exam Back exam: NORMAL INSPECTION - Neurological Exam Neurological exam: Alert, CN II-XII Intact, Normal Gait, Oriented x3 - Psychiatric Exam Psychiatric exam: Normal Affect, Normal Mood - Skin Skin Exam: Dry, Intact, Normal Color, Warm Discharge Plan - Follow Up Plan Condition: IMPROVED Disposition: HOME/ ROUTINE Patient education suggested?: Yes Instructions: Gastrointestinal Bleeding (DC) Additional Instructions: Follow surgery's instructions as originally planned for your operation on June 05. If symptoms recur, return to the nearest emergency room. Referrals: Carroll Segovia MD [Staff Provider] - Brad Zepeda MD [Staff Provider] - <Jamal Collins - Last Filed: 06/03/18 14:25> Provider - Provider Date of Admission: 06/02/18 03:29 Attending physician: Mannie Arenas MD Consults: 06/02/18 04:27 Gastroenterology Consult Routine Comment: colonscopy performed last week with you Consulting Provider: Brad Zepeda Consulting Physician: Brad Zepeda Reason for Consult: lower GI bleed, large sessile transverse colonic polyp General Surgery Consult Routine Comment: Consulting Provider: Carroll Segovia Consulting Physician: Carroll Segovia Reason for Consult: lower GI bleed, large sessile transverse colonic polyp Hospital Course - Lab Results Lab Results: Most Recent Lab Values WBC 5.2 K/uL (4.8-10.8) 06/03/18 08:00 RBC 4.26 Mil/uL (3.80-5.20) 06/03/18 08:00 Hgb 12.5 g/dL (11.0-16.0) 06/03/18 08:00 Hct 37.6 % (34.0-47.0) 06/03/18 08:00 MCV 88.1 fL (81.0-99.0) 06/03/18 08:00 MCH 29.4 pg (27.0-31.0) 06/03/18 08:00 MCHC 33.3 g/dL (33.0-37.0) 06/03/18 08:00 RDW 13.5 % (11.5-14.5) 06/03/18 08:00 Plt Count 165 K/uL (130-400) 06/03/18 08:00 MPV 9.2 fL (7.2-11.7) 06/03/18 08:00 Neut % (Auto) 61.9 % (50.0-75.0) 06/03/18 08:00 Lymph % (Auto) 28.6 % (20.0-40.0) 06/03/18 08:00 [place] % (Auto) 7.5 % (0.0-10.0) 06/03/18 08:00 Eos % (Auto) 1.4 % (0.0-4.0) 06/03/18 08:00 Baso % (Auto) 0.6 % (0.0-2.0) 06/03/18 08:00 Neut # (Auto) 3.2 K/uL (1.8-7.0) 06/03/18 08:00 Lymph # (Auto) 1.5 K/uL (1.0-4.3) 06/03/18 08:00 [place] # (Auto) 0.4 K/uL (0.0-0.8) 06/03/18 08:00 Eos # (Auto) 0.1 K/uL (0.0-0.7) 06/03/18 08:00 Baso # (Auto) 0.0 K/uL (0.0-0.2) 06/03/18 08:00 PT 11.7 SECONDS (9.7-12.2) 06/02/18 02:31 INR 1.1 06/02/18 02:31 APTT 31 SECONDS (21-34) 06/02/18 02:31 Sodium 139 mmol/L (132-148) 06/03/18 08:00 Potassium 4.1 mmol/L (3.6-5.2) 06/03/18 08:00 Chloride 108 mmol/L (98-107) H 06/03/18 08:00 Carbon Dioxide 26 mmol/L (22-30) 06/03/18 08:00 Anion Gap 9 (10-20) L 06/03/18 08:00 BUN 9 mg/dL (7-17) 06/03/18 08:00 Creatinine 0.7 mg/dL (0.7-1.2) 06/03/18 08:00 Est GFR ( Amer) > 60 06/03/18 08:00 Est GFR (Non-Af Amer) > 60 06/03/18 08:00 Random Glucose 95 mg/dL (65-105) 06/03/18 08:00 Calcium 8.7 mg/dl (8.6-10.4) 06/03/18 08:00 Phosphorus 4.2 mg/dL (2.5-4.5) 06/03/18 08:00 Magnesium 2.0 mg/dL (1.6-2.3) 06/03/18 08:00 Total Bilirubin 0.8 mg/dL (0.2-1.3) 06/03/18 08:00 AST 21 U/L (14-36) 06/03/18 08:00 ALT 19 U/L (9-52) 06/03/18 08:00 Alkaline Phosphatase 80 U/L (38-126) 06/03/18 08:00 Total Protein 6.5 g/dL (6.3-8.3) 06/03/18 08:00 Albumin 3.9 g/dL (3.5-5.0) 06/03/18 08:00 Globulin 2.6 gm/dL (2.2-3.9) 06/03/18 08:00 Albumin/Globulin Ratio 1.5 (1.0-2.1) 06/03/18 08:00 Urine Color Straw (YELLOW) 06/02/18 02:31 Urine Clarity Clear (Clear) 06/02/18 02:31 Urine pH 5.0 (5.0-8.0) 06/02/18 02:31 Ur Specific [place] 1.014 (1.003-1.030) 06/02/18 02:31 Urine Protein Negative mg/dL (NEGATIVE) 06/02/18 02:31 Urine Glucose (UA) Normal mg/dL (Normal) 06/02/18 02:31 Urine Ketones Negative mg/dL (NEGATIVE) 06/02/18 02:31 Urine Blood Negative (NEGATIVE) 06/02/18 02:31 Urine Nitrate Negative (NEGATIVE) 06/02/18 02:31 Urine Bilirubin Negative (NEGATIVE) 06/02/18 02:31 Urine Urobilinogen Normal mg/dL (0.2-1.0) 06/02/18 02:31 Ur Leukocyte Esterase Neg Marleen/uL (Negative) 06/02/18 02:31 Urine RBC (Auto) < 1 /hpf (0-3) 06/02/18 02:31 Ur Squamous Epith Cells < 1 /hpf (0-5) 06/02/18 02:31 Stool Occult Blood Positive (NEGATIVE) H 06/02/18 02:01 Blood Type O POSITIVE 06/02/18 02:31 Antibody Screen Negative 06/02/18 02:31 Attending/Attestation - Attestation I have personally seen and examined this patient.: Yes I have fully participated in the care of the patient.: Yes I have reviewed all pertinent clinical information, including history, physical exam and plan: Yes Notes (Text): 06/03/18 14:23 Medical attending: Patient was seen and examined by me. Agree with the above note by the resident The patient was not in any acute distress at this time The case was reviewed by me and the resident. I spoke with GI physician as well The patient's lab work returned and Hgb was stable. Patient felt well enough to go home She is comming back on Tuesday to have the surgery done Jamal Collins
[2018-06-03 08:37] LABS: ALB/GLOB RATIO 1.5 (1.0-2.1); ALBUMIN 3.9 g/dL (3.5-5.0); ALT/SGPT 19 U/L (9-52); AST/SGOT 21 U/L (14-36); BLOOD UREA NITROGEN 9 mg/dL (7-17); CALCIUM 8.7 mg/dl (8.6-10.4); GFR NON-AFRICAN AMERICAN > 60
--- NOTE | 2018-06-03 08:42 | CP.PCM.PN ---
Subjective - Date & Time of Evaluation Date of Evaluation: 06/03/18 Time of Evaluation: 08:37 - Subjective Subjective: Patient seen and examined, resting comfortably in bed. No acute events overnight, no recurrent episodes of rectal bleeding noted. She denies abdominal pain, nausea, vomiting, fever/chills. Tolerating PO liquids without difficulty. 12 point review of systems performed, negative aside from mentioned above. Objective - Vital Signs/Intake and Output Vital Signs (last 24 hours): Temp Pulse Resp BP Pulse Ox 98.1 F 59 L 20 125/78 99 06/02/18 23:35 06/03/18 07:29 06/02/18 23:35 06/02/18 23:35 06/02/18 23:35 - Medications Medications: Current Medications Pantoprazole Sodium (Protonix Inj) 40 mg IVP DAILY BILL Last Admin: 06/02/18 10:59 Dose: 40 mg - Labs Labs: 06/03/18 08:00 06/02/18 02:31 PT 11.7 SECONDS (9.7-12.2) 06/02/18 02:31 INR 1.1 06/02/18 02:31 APTT 31 SECONDS (21-34) 06/02/18 02:31 - Constitutional Appears: Non-toxic, No Acute Distress - Head Exam Head Exam: NORMAL INSPECTION - Eye Exam Eye Exam: EOMI, Normal appearance - ENT Exam ENT Exam: Mucous Membranes Moist - Respiratory Exam Respiratory Exam: Clear to Ausculation Bilateral - Cardiovascular Exam Cardiovascular Exam: REGULAR RHYTHM, +S1, +S2 - GI/Abdominal Exam GI & Abdominal Exam: Soft, Normal Bowel Sounds Additional comments: non tender to palpation in four quadrants - Extremities Exam Extremities Exam: Normal Inspection - Skin Skin Exam: Dry, Intact, Normal Color, Warm Assessment and Plan - Assessment and Plan (Free Text) Assessment: History of colon polyps Rectal bleeding - likely secondary to ulcerated polypectomy site given clinical presentation with recent colonoscopy and partial polypectomy of large transverse colon polyp, s/p endoclip placement Plan: - Advance diet as tolerated - H/H stable, continue to monitor - Patient hemodynamically stable without recurrent rectal bleeding over past 24 hours. From GI standpoint ok to discharge home with subsequent outpatient follow up. She has planned partial colon resection with Dr. Segovia on tuesday.
[2018-06-03 08:53] VITALS: BP 119/72; PULSE 62; TEMP 97.6; O2SAT 98
== END 2018-06-03 10:54 | disposition home or self-care (01) | DRG 921 ==
LOC: C.ER 01:21 → C.9E 03:29 → C.6T 14:02
PROVIDERS: ADMIT Hospitalist; ATTEND Hospitalist
DX: K91.840 Postprocedural hemorrhage of a digestive system organ or structure following a digestive system procedure (principal); D12.3 Benign neoplasm of transverse colon; Y84.8 Other medical procedures as the cause of abnormal reaction of the patient, or of later complication, without mention of misadventure at the time of the procedure; Y73.0 Diagnostic and monitoring gastroenterology and urology devices associated with adverse incidents; Y92.234 Operating room of hospital as the place of occurrence of the external cause

== ENCOUNTER 2018-06-05 05:59 | Inpatient (IN) | payer MEDICARE, OTHER ==
[2018-06-05] MEDS ORDERED: Midazolam 2 MG/2 ML VIAL ONE (07:13)
[2018-06-05] MEDS ORDERED: Propofol 10 mg/ml Inj (20 ML) ONE (07:13)
[2018-06-05] MEDS ORDERED: Clindamycin 600mg/50ml NS 600 MG/50 ML BAG IVPB ONE (07:22)
[2018-06-05] MEDS ORDERED: metroNIDAZOLE IV 500 mg/100 ml 500 MG/100 ML BAG ONE (07:22)
[2018-06-05] MEDS ORDERED: Bupivacaine 0.25% 20 ML INJ IJ ONE (07:22)
[2018-06-05] MEDS ORDERED: Bupivacaine HCl 0.5% PF (10 ml) Inj ONE (07:25)
[2018-06-05] MEDS ORDERED: Lidocaine/Epinephrine 1% 1:100000 10 ML IJ ONE (07:48)
[2018-06-05] MEDS ORDERED: Bupivacaine Liposomal Inj 20 ml INJ ONE (10:28)
[2018-06-05] MEDS ORDERED: Sodium Chloride 0.9% 20 ML IV ONE ×2 (10:56→11:47)
[2018-06-05] MEDS ORDERED: BUPIVACAINE 0.125%/0.9% NACL 600 ML IJ ONE (11:26)
[2018-06-05] MEDS: Lactated Ringer's 1,000 ML IV SCH ×2 (13:05→22:57)
[2018-06-05] MEDS: HYDROmorphone 0.5 mg/0.5 ml ISec IVP PRN ×3 (13:18→14:00)
--- NOTE | 2018-06-05 13:18 | PCM.SURG1 ---
Surgeon's Initial Post Op Note - Surgeon's Notes Surgeon: Dr. Segovia Design Engineer Agricultural Equipment: Dr. Lock, Dr. Sterling Type of Anesthesia: General Endo Pre-Operative Diagnosis: Transverse colon mass Operative Findings: tattoo easily visible, patent anastamotic lumen Post-Operative Diagnosis: same Operation Performed: robotic assisted laparoscopic right segmental transverse colectomy Specimen/Specimens Removed: colon Estimated Blood Loss: EBL {In ML}: 50 Blood Products Given: N/A Drains Used: No Drains Post-Op Condition: Good Date of Surgery/Procedure: 06/05/18 Time of Surgery/Procedure: 13:18
[2018-06-05] MEDS ORDERED: Clindamycin 300 MG in Sodium Chloride 0.9% 50 ML IVPB SCH (14:30)
--- NOTE | 2018-06-06 01:10 | OP ---
PROCEDURE DATE: 06/05/2018 PREOPERATIVE DIAGNOSES: 1. Transverse colon sessile polyp. 2. Morbid obesity. POSTOPERATIVE DIAGNOSES: 1. Transverse colon sessile polyp. 2. Morbid obesity. PROCEDURES DONE: 1. Robotic transverse colon segmental resection. 2. Robotic partial omentectomy. 3. Mobilization of the right colon. 4. Bilateral On-Q pain catheter pump placement. SURGEON: Carroll Segovia MD ASSISTANTS: JEREMIE Thornton; Logan Lock DO, PGY-4 resident; and Mj Sterling D.O., PGY-1 resident. ANESTHESIA: General endotracheal tube anesthesia. ESTIMATED BLOOD LOSS: Around 50 mL. DRAINS: None. PATHOLOGY: The colon as well as omentum was sent for the Pathology. COMPLICATIONS: None. INTRAOPERATIVE FINDINGS: The patient had proximal transverse colon tattooed polyp. DESCRIPTION OF PROCEDURE: On intraoperative steps, this is a 67-year-old female, who was diagnosed with a transverse colon polyp, and the patient was consented for the robotic assisted laparoscopic colon resection, possible ostomy and possible open, brought to the OR, placed supine on the operating table. After induction of anesthesia, the abdomen was prepped and draped in usual sterile fashion. The supraumbilical incision was made using open technique. Peritoneal cavity was entered, and Pneumo was created. Another 3-8 mm port was placed in the left upper quadrant, left lower quadrant, and right lower quadrant. The robot was brought in. Camera arm as well as arm one and arm two were docked. The patient was found to have tattooed colon in the right upper quadrant at the hepatic flexure, and first omentum was mobilized, and the mesocolon was resected off the transverse colon and the dissection was continued over the ascending colon. The right colon was completely mobilized. The right colon was mobilized and now the ascending colon and hepatic flexure junction were resected and proximal transverse colon, at least 3 cm proximal to the tattooed area was resected and omentum was also resected, and now the small abdominal incision was made, and both loop of the colon end was brought out and [id number] anastomosis was done. The three anti-tension sutures was taken to prevent the tension on the colon and the colon mesentery had complete hemostasis and after that colonic anastomosis was put back into the peritoneal cavity, the Pneumo was created again, and intraoperative Firefly was used for the proper blood supply, and the patient had good blood supply. Anastomosis was without any tension and it was patent as well as there was a good blood supply. After that, all the instruments were taken out. All the ports were taken out under vision. The Pneumo was deflated. All the port sites were closed with 2-0 Vicryl and 4-0 Monocryl as well as the abdominal incisional site was closed in two layers. The fascia with #1 loop PDS as well as 0 Prolene interrupted suture. The wound was irrigated, and the wound was closed in two layers, the subcu with 2-0 Vicryl, skin with 4-0 Monocryl. The bilateral On-Q pain catheter pump was placed, and the pain catheter was connected to the increasing chamber. After that, the patient was extubated in OR, sent to the postanesthesia care unit in stable condition. Carroll Segovia MD BRIAN
[2018-06-06] MEDS: Morphine 4 MG/ML VIAL IVP PRN (02:30)
[2018-06-06] MEDS: Lactated Ringer's 1,000 ML IV SCH ×4 (02:32→21:26)
--- NOTE | 2018-06-06 07:32 | CP.PCM.PN ---
<Mj Sterling - Last Filed: 06/06/18 09:37> Subjective - Date & Time of Evaluation Date of Evaluation: 06/06/18 Time of Evaluation: 07:29 - Subjective Subjective: Surgery Note for Dr. Segovia 67F seen and evaluated at bedside this morning. No acute events overnight. Complaints of pain however it is well controlled with medication. Using IS. Patient has alvarado, 200cc output overnight. No passing of flatus or bowel movement. Denies f/c, n/v/d, SOB, CP, or urinary symptoms. Objective - Vital Signs/Intake and Output Vital Signs (last 24 hours): Temp Pulse Resp BP Pulse Ox 98.8 F 65 20 107/65 97 06/06/18 05:00 06/06/18 05:00 06/06/18 05:00 06/06/18 05:00 06/05/18 23:25 Intake and Output: 06/06/18 06/06/18 06:59 18:59 Intake Total 1010 Output Total 750 Balance 260 - Medications Medications: Current Medications Acetaminophen (Tylenol 325mg Tab) 975 mg PO Q6 PRN PRN Reason: Pain, moderate (4-7) Heparin Sodium (Porcine) (Heparin) 5,000 units SC Q8 BILL Hydromorphone HCl (Dilaudid) 0.5 mg IVP Q10M PRN PRN Reason: Pain, moderate (4-7) Last Admin: 06/05/18 14:00 Dose: 0.5 mg BUPIVACAINE 0.125%/0.9% NACL (Bupivacaine-Ns 0.125% On-Q Slunk [employer] Curer) 600 mls @ 4 mls/hr IJ ONCE ONE Stop: 06/11/18 17:25 Last Admin: 06/05/18 15:15 Dose: 0 mls Lactated Ringer's (Lactated Ringer's) 1,000 mls @ 125 mls/hr IV .Q8H BILL Last Admin: 06/06/18 05:28 Dose: Not Given Morphine Sulfate (Morphine) 4 mg IVP Q4 PRN PRN Reason: Pain, severe (8-10) Last Admin: 06/06/18 02:30 Dose: 4 mg Ondansetron HCl (Zofran Inj) 4 mg IVP Q6H PRN PRN Reason: Nausea/Vomiting - Constitutional Appears: Well, Non-toxic, No Acute Distress - Head Exam Head Exam: ATRAUMATIC, NORMAL INSPECTION, NORMOCEPHALIC - Eye Exam Eye Exam: EOMI - ENT Exam ENT Exam: Mucous Membranes Moist - Respiratory Exam Respiratory Exam: NORMAL BREATHING PATTERN. absent: Respiratory Distress - Cardiovascular Exam Cardiovascular Exam: REGULAR RHYTHM. absent: Tachycardia - GI/Abdominal Exam GI & Abdominal Exam: Soft, Normal Bowel Sounds. absent: Distended, Guarding, Tenderness, Rebound - Neurological Exam Neurological Exam: Alert, Awake - Psychiatric Exam Psychiatric exam: Normal Affect, Normal Mood - Skin Skin Exam: Dry, Intact, Normal Color, Warm Assessment and Plan - Assessment and Plan (Free Text) Assessment: 67F s/p robot assisted laparoscopic segmental transverse colectomy POD1 Plan: ADAT IVF Antiemetics and analgesics Discontinue alvarado Started on DVT PPX Encourage IS use Encourage OOBTC and activity as tolerated Further recommendations per Dr. Juliette Sterling PGY1 <Carroll Segovia - Last Filed: 06/11/18 17:40> Objective - Vital Signs/Intake and Output Vital Signs (last 24 hours): Temp Pulse Resp BP Pulse Ox 98.1 F 65 20 133/82 96 06/10/18 07:00 06/10/18 07:00 06/10/18 07:00 06/10/18 07:00 06/10/18 07:00 - Labs Labs: 06/09/18 06:51 06/09/18 06:51 Attending/Attestation - Attestation I have personally seen and examined this patient.: Yes I have fully participated in the care of the patient.: Yes I have reviewed all pertinent clinical information, including history, physical exam and plan: Yes Notes (Text): Pt was seen and examined at bedside Agree with above note and assessment Pt's pain is not controlled very well IV morphinr prn DVT prophylaxis SCD OOB to walk DC alvarado CBC, BMP in am Plan d.w pt in detail Risk and benefit explained in detail.
[2018-06-06 07:35] LABS: BLOOD UREA NITROGEN 10 mg/dL (7-17); CALCIUM 8.3 mg/dl (8.6-10.4); GFR NON-AFRICAN AMERICAN > 60
[2018-06-06 11:40] LABS: MEAN CELL VOLUME 87.3 fL (81.0-99.0); MEAN CORPUSCULAR HEMOGLOBIN 29.3 pg (27.0-31.0); MEAN CORPUSCULAR HGB CONC 33.6 g/dL (33.0-37.0); RBC 3.56 Mil/uL (3.80-5.20); RED CELL DISTRIBUTION WIDTH 13.3 % (11.5-14.5)
[2018-06-06 11:54] LABS: HEMOGLOBIN 10.4 g/dL (11.0-16.0); WHITE BLOOD COUNT 10.7 K/uL (4.8-10.8)
[2018-06-06] MEDS ORDERED: Pantoprazole 40 mg EC Tab PO STA (21:08)
[2018-06-07] MEDS: Morphine 4 MG/ML VIAL IVP PRN (00:57)
[2018-06-07] MEDS: Lactated Ringer's 1,000 ML IV SCH ×4 (01:08→22:09)
--- NOTE | 2018-06-07 11:12 | CP.PCM.PN ---
<Mj Sterling - Last Filed: 06/07/18 14:34> Subjective - Date & Time of Evaluation Date of Evaluation: 06/07/18 Time of Evaluation: 11:09 - Subjective Subjective: Surgery Note for Dr. Segovia 67F seen and evaluated at bedside this morning. No acute events overnight. No complaints this morning. Patient is ambulating, tolerating clears - currently asking for soft foods. She is voiding. No passing of flatus or bowel movement. Denies f/c, n/v/d, SOB, CP, or urinary symptoms. Objective - Vital Signs/Intake and Output Vital Signs (last 24 hours): Temp Pulse Resp BP Pulse Ox 97.8 F 67 18 125/82 96 06/07/18 08:00 06/07/18 08:00 06/07/18 08:00 06/07/18 08:00 06/07/18 08:00 Intake and Output: 06/07/18 06/07/18 06:59 18:59 Intake Total 1000 Balance 1000 - Medications Medications: Current Medications Acetaminophen (Tylenol 325mg Tab) 975 mg PO Q6 PRN PRN Reason: Pain, moderate (4-7) Last Admin: 06/07/18 06:17 Dose: 975 mg Heparin Sodium (Porcine) (Heparin) 5,000 units SC Q8 BILL Last Admin: 06/07/18 05:13 Dose: 5,000 units Hydromorphone HCl (Dilaudid) 0.5 mg IVP Q10M PRN PRN Reason: Pain, moderate (4-7) Last Admin: 06/05/18 14:00 Dose: 0.5 mg BUPIVACAINE 0.125%/0.9% NACL (Bupivacaine-Ns 0.125% On-Q Inside Technical Sales Representative) 600 mls @ 4 mls/hr IJ ONCE ONE Stop: 06/11/18 17:25 Last Admin: 06/05/18 15:15 Dose: 0 mls Lactated Ringer's (Lactated Ringer's) 1,000 mls @ 125 mls/hr IV .Q8H BILL Last Admin: 06/07/18 05:20 Dose: Not Given Morphine Sulfate (Morphine) 4 mg IVP Q4 PRN PRN Reason: Pain, severe (8-10) Last Admin: 06/07/18 00:57 Dose: 4 mg Ondansetron HCl (Zofran Inj) 4 mg IVP Q6H PRN PRN Reason: Nausea/Vomiting Last Admin: 06/07/18 00:57 Dose: 4 mg Pneumococcal Polyvalent Vaccine (Pneumovax 23 Vaccine) 0.5 ml IM .ONCE ONE Stop: 06/07/18 12:01 - Labs Labs: 06/06/18 11:25 06/06/18 06:52 - Constitutional Appears: Well, Non-toxic, No Acute Distress - Head Exam Head Exam: ATRAUMATIC, NORMAL INSPECTION, NORMOCEPHALIC - Eye Exam Eye Exam: EOMI - ENT Exam ENT Exam: Mucous Membranes Dry - Respiratory Exam Respiratory Exam: NORMAL BREATHING PATTERN. absent: Respiratory Distress - Cardiovascular Exam Cardiovascular Exam: REGULAR RHYTHM. absent: Tachycardia - GI/Abdominal Exam GI & Abdominal Exam: Soft, Tenderness, Normal Bowel Sounds. absent: Distended, Guarding, Rigid, Rebound - Neurological Exam Neurological Exam: Alert, Awake - Psychiatric Exam Psychiatric exam: Normal Affect, Normal Mood - Skin Skin Exam: Dry, Intact, Normal Color, Warm Additional comments: incision sites c/d/i Assessment and Plan - Assessment and Plan (Free Text) Assessment: 67F s/p robotic segmental transverse colectomy POD2 Plan: CLD for now Antiemetics and analgesics IVF Encourage ambulation and IS use Physical therapy recommended Monitor return of bowel function D/w Dr. Juliette Sterling PGY1 <Carroll Segovia - Last Filed: 06/11/18 17:41> Objective - Vital Signs/Intake and Output Vital Signs (last 24 hours): Temp Pulse Resp BP Pulse Ox 98.1 F 65 20 133/82 96 06/10/18 07:00 06/10/18 07:00 06/10/18 07:00 06/10/18 07:00 06/10/18 07:00 - Labs Labs: 06/09/18 06:51 06/09/18 06:51 Attending/Attestation - Attestation I have personally seen and examined this patient.: Yes I have fully participated in the care of the patient.: Yes I have reviewed all pertinent clinical information, including history, physical exam and plan: Yes Notes (Text): Pt was seen and examined at bedside Agree with above note and assessment Pt is improving clinically C/w current mx OOB to walk Plan d.w pt in detail
[2018-06-07] MEDS ORDERED: Pneumococcal 23-Valent Vaccine IM ONE (12:00)
[2018-06-08 08:17] LABS: HEMOGLOBIN 11.3 g/dL (11.0-16.0); MEAN CELL VOLUME 87.5 fL (81.0-99.0); MEAN CORPUSCULAR HEMOGLOBIN 29.1 pg (27.0-31.0); MEAN CORPUSCULAR HGB CONC 33.2 g/dL (33.0-37.0); MEAN PLATELET VOLUME 10.1 fL (7.2-11.7); RBC 3.89 Mil/uL (3.80-5.20); RED CELL DISTRIBUTION WIDTH 13.6 % (11.5-14.5); WHITE BLOOD COUNT 7.5 K/uL (4.8-10.8)
--- NOTE | 2018-06-08 08:48 | CP.PCM.PN ---
<Logan Lock - Last Filed: 06/08/18 08:44> Subjective - Date & Time of Evaluation Date of Evaluation: 06/08/18 Time of Evaluation: 06:40 - Subjective Subjective: General Surgery Pt seen and examined. Pain controlled, tolerating diet and ambulating. No new complaints. Answered patient questions. Objective - Vital Signs/Intake and Output Vital Signs (last 24 hours): Temp Pulse Resp BP Pulse Ox 98.7 F 63 20 150/85 98 06/08/18 07:35 06/08/18 07:35 06/08/18 07:35 06/08/18 07:35 06/08/18 07:35 Intake and Output: 06/08/18 06/08/18 06:59 18:59 Intake Total 500 Balance 500 - Medications Medications: Current Medications Acetaminophen (Tylenol 325mg Tab) 975 mg PO Q6 PRN PRN Reason: Pain, moderate (4-7) Last Admin: 06/07/18 19:57 Dose: 975 mg Heparin Sodium (Porcine) (Heparin) 5,000 units SC Q8 BILL Last Admin: 06/08/18 05:19 Dose: 5,000 units Hydromorphone HCl (Dilaudid) 0.5 mg IVP Q10M PRN PRN Reason: Pain, moderate (4-7) Last Admin: 06/05/18 14:00 Dose: 0.5 mg BUPIVACAINE 0.125%/0.9% NACL (Bupivacaine-Ns 0.125% On-Q [employer] Project Manager) 600 mls @ 4 mls/hr IJ ONCE ONE Stop: 06/11/18 17:25 Last Admin: 06/05/18 15:15 Dose: 0 mls Lactated Ringer's (Lactated Ringer's) 1,000 mls @ 125 mls/hr IV .Q8H BILL Last Admin: 06/07/18 22:09 Dose: Not Given Morphine Sulfate (Morphine) 4 mg IVP Q4 PRN PRN Reason: Pain, severe (8-10) Last Admin: 06/07/18 00:57 Dose: 4 mg Ondansetron HCl (Zofran Inj) 4 mg IVP Q6H PRN PRN Reason: Nausea/Vomiting Last Admin: 06/08/18 05:23 Dose: 4 mg - Labs Labs: 06/08/18 08:12 06/06/18 06:52 - Constitutional Appears: Non-toxic, No Acute Distress - Head Exam Head Exam: ATRAUMATIC, NORMOCEPHALIC - Respiratory Exam Respiratory Exam: NORMAL BREATHING PATTERN. absent: Respiratory Distress - GI/Abdominal Exam GI & Abdominal Exam: Soft, Tenderness (mild at incisions). absent: Distended, Firm, Guarding, Rigid, Rebound Additional comments: dressings C/D/I, onQ in place - Neurological Exam Neurological Exam: Alert, Awake, Oriented x3 - Skin Skin Exam: Dry, Warm Assessment and Plan - Assessment and Plan (Free Text) Assessment: 67F s/p robotic segmental transverse colectomy POD#3 Plan: Pathology: shows serrated adenoma Continue CLD Antiemetics and analgesics Decrease IVF Encourage ambulation and IS use Physical therapy recommended Monitor return of bowel function D/W Dr. Juliette Lock PGY4 <Carroll Segovia - Last Filed: 06/11/18 17:42> Objective - Vital Signs/Intake and Output Vital Signs (last 24 hours): Temp Pulse Resp BP Pulse Ox 98.1 F 65 20 133/82 96 06/10/18 07:00 06/10/18 07:00 06/10/18 07:00 06/10/18 07:00 06/10/18 07:00 - Labs Labs: 06/09/18 06:51 06/09/18 06:51 Attending/Attestation - Attestation I have personally seen and examined this patient.: Yes I have fully participated in the care of the patient.: Yes I have reviewed all pertinent clinical information, including history, physical exam and plan: Yes Notes (Text): Pt was seen and examined at bedside Agree with above note and assessment Pt is improved clinically OOB to walk C/o nausea Start Reglan and toradol Plan d.w pt in detail .
[2018-06-08 09:02] LABS: BLOOD UREA NITROGEN 7 mg/dL (7-17); CALCIUM 8.3 mg/dl (8.6-10.4); GFR NON-AFRICAN AMERICAN > 60
[2018-06-08] MEDS: Lactated Ringer's 1,000 ML IV SCH (11:30)
[2018-06-08] MEDS ORDERED: Morphine 4 MG/ML VIAL IVP PRN (20:11)
[2018-06-09 01:48] VITALS: RESP 20
[2018-06-09] MEDS: Lactated Ringer's 1,000 ML IV SCH (06:01)
[2018-06-09 07:01] LABS: HEMOGLOBIN 10.8 g/dL (11.0-16.0); MEAN CELL VOLUME 85.7 fL (81.0-99.0); MEAN CORPUSCULAR HEMOGLOBIN 29.7 pg (27.0-31.0); MEAN CORPUSCULAR HGB CONC 34.7 g/dL (33.0-37.0); MEAN PLATELET VOLUME 9.3 fL (7.2-11.7); RBC 3.62 Mil/uL (3.80-5.20); WHITE BLOOD COUNT 6.6 K/uL (4.8-10.8)
[2018-06-09 07:47] LABS: BLOOD UREA NITROGEN 11 mg/dL (7-17); CALCIUM 8.2 mg/dl (8.6-10.4); GFR NON-AFRICAN AMERICAN > 60
[2018-06-09] MEDS ORDERED: Potassium Chloride 20 mEq/15 ml LIQ UD PO ONE (08:15)
--- NOTE | 2018-06-09 08:52 | CP.PCM.PN ---
<Pepe Mckeon - Last Filed: 06/09/18 10:28> Subjective - Date & Time of Evaluation Date of Evaluation: 06/09/18 Time of Evaluation: 08:00 - Subjective Subjective: Surgery progress note for Dr. Segovia Patient seen and examined at bedside. No acute events reported overnight. Patient admits to having flatulence; however, has had no bowel movement yet. Denies fevers/chills, nausea, vomiting, chest pain, SOB. Patient is able to ambulate around the hallway with minimal to no pain. Patient offers no other complaints. Objective - Vital Signs/Intake and Output Vital Signs (last 24 hours): Temp Pulse Resp BP Pulse Ox 98.1 F 62 20 151/83 H 97 06/09/18 07:00 06/09/18 07:00 06/09/18 07:00 06/09/18 07:00 06/09/18 07:00 Intake and Output: 06/09/18 06/09/18 06:59 18:59 Intake Total 700 Balance 700 - Medications Medications: Current Medications Acetaminophen (Tylenol 325mg Tab) 975 mg PO Q6 PRN PRN Reason: Pain, moderate (4-7) Last Admin: 06/07/18 19:57 Dose: 975 mg Heparin Sodium (Porcine) (Heparin) 5,000 units SC Q8 BILL Last Admin: 06/09/18 06:00 Dose: 5,000 units Hydromorphone HCl (Dilaudid) 0.5 mg IVP Q10M PRN PRN Reason: Pain, moderate (4-7) Last Admin: 06/05/18 14:00 Dose: 0.5 mg BUPIVACAINE 0.125%/0.9% NACL (Bupivacaine-Ns 0.125% On-Q Fish Net Maker) 600 mls @ 4 mls/hr IJ ONCE ONE Stop: 06/11/18 17:25 Last Admin: 06/05/18 15:15 Dose: 0 mls Lactated Ringer's (Lactated Ringer's) 1,000 mls @ 75 mls/hr IV .[id number] BILL Last Admin: 06/09/18 06:01 Dose: 75 mls/hr Ketorolac Tromethamine (Toradol) 30 mg IVP Q6 PRN PRN Reason: Pain, moderate (4-7) Last Admin: 06/09/18 07:35 Dose: 30 mg Metoclopramide HCl (Reglan) 10 mg IVP Q8H PRN PRN Reason: Nausea/Vomiting Last Admin: 06/09/18 07:36 Dose: 10 mg Morphine Sulfate (Morphine) 2 mg IVP Q4 PRN PRN Reason: Pain, severe (8-10) Ondansetron HCl (Zofran Inj) 4 mg IVP Q6H PRN PRN Reason: Nausea/Vomiting Last Admin: 06/08/18 11:30 Dose: 4 mg - Labs Labs: 06/09/18 06:51 06/09/18 06:51 - Constitutional Appears: No Acute Distress - Head Exam Head Exam: NORMAL INSPECTION - Eye Exam Eye Exam: Normal appearance - ENT Exam ENT Exam: Mucous Membranes Moist - Respiratory Exam Respiratory Exam: NORMAL BREATHING PATTERN - Cardiovascular Exam Additional comments: RR - GI/Abdominal Exam GI & Abdominal Exam: Soft Additional comments: Incision sites clean, dry, intact minimal tenderness on palpation around surgical sites - Neurological Exam Neurological Exam: Alert, Awake - Psychiatric Exam Psychiatric exam: Normal Mood - Skin Skin Exam: Normal Color, Warm Assessment and Plan - Assessment and Plan (Free Text) Assessment: 67F s/p robotic segmental transverse colectomy POD#4 Plan: Pathology: shows serrated adenoma Advance diet to full liquids; will consider puree after passing BM Antiemetics and analgesics D/C fluids D/C on Q tomorrow 2/2, remove dressing tomorrow 2/2 Encourage ambulation and IS use Physical therapy recommended Monitor return of bowel function D/W Dr. Juliette Mckeon PGY1 <Carroll Segovia B - Last Filed: 06/11/18 17:43> Objective - Vital Signs/Intake and Output Vital Signs (last 24 hours): Temp Pulse Resp BP Pulse Ox 98.1 F 65 20 133/82 96 06/10/18 07:00 06/10/18 07:00 06/10/18 07:00 06/10/18 07:00 06/10/18 07:00 - Labs Labs: 06/09/18 06:51 06/09/18 06:51 Attending/Attestation - Attestation I have personally seen and examined this patient.: Yes I have fully participated in the care of the patient.: Yes I have reviewed all pertinent clinical information, including history, physical exam and plan: Yes Notes (Text): Pt was seen and examined at bedside Agree with above note and assessment Pt is improving clinically DC plan Advance diet if BM Plan d.w pt in detail
--- NOTE | 2018-06-10 02:49 | CP.PCM.PN ---
<Lee Roman - Last Filed: 06/10/18 02:46> Subjective - Date & Time of Evaluation Date of Evaluation: 06/10/18 Time of Evaluation: 02:46 - Subjective Subjective: SURGERY NOTE FOR DR. SEGOVIA 67F seen and examined at bedside. Patient denies abdominal pain, denies nausea or vomiting. She is tolerating soft diet, she admits to flatus and bowel movements. Objective - Vital Signs/Intake and Output Vital Signs (last 24 hours): Temp Pulse Resp BP Pulse Ox 98.8 F 82 20 138/78 98 06/09/18 15:00 06/09/18 15:00 06/09/18 15:00 06/09/18 15:00 06/09/18 15:00 Intake and Output: 06/09/18 06/10/18 18:59 06:59 Intake Total 525 450 Balance 525 450 - Medications Medications: Current Medications Acetaminophen (Tylenol 325mg Tab) 975 mg PO Q6 PRN PRN Reason: Pain, moderate (4-7) Last Admin: 06/07/18 19:57 Dose: 975 mg Heparin Sodium (Porcine) (Heparin) 5,000 units SC Q8 BILL Last Admin: 06/09/18 21:19 Dose: 5,000 units BUPIVACAINE 0.125%/0.9% NACL (Bupivacaine-Ns 0.125% On-Q [employer] Repairer) 600 mls @ 4 mls/hr IJ ONCE ONE Stop: 06/11/18 17:25 Last Admin: 06/05/18 15:15 Dose: 0 mls Ketorolac Tromethamine (Toradol) 30 mg IVP Q6 PRN PRN Reason: Pain, moderate (4-7) Last Admin: 06/09/18 22:19 Dose: 30 mg Metoclopramide HCl (Reglan) 10 mg IVP Q8H PRN PRN Reason: Nausea/Vomiting Last Admin: 06/09/18 22:21 Dose: 10 mg Morphine Sulfate (Morphine) 2 mg IVP Q4 PRN PRN Reason: Pain, severe (8-10) Ondansetron HCl (Zofran Inj) 4 mg IVP Q6H PRN PRN Reason: Nausea/Vomiting Last Admin: 06/08/18 11:30 Dose: 4 mg - Labs Labs: 06/09/18 06:51 06/09/18 06:51 - Constitutional Appears: Non-toxic, No Acute Distress - Respiratory Exam Respiratory Exam: Clear to Ausculation Bilateral, NORMAL BREATHING PATTERN - Cardiovascular Exam Cardiovascular Exam: REGULAR RHYTHM, +S1, +S2 - GI/Abdominal Exam GI & Abdominal Exam: Soft. absent: Distended, Firm, Guarding, Rigid, Tenderness, Rebound Additional comments: dressings CDI, On-Q in place - Neurological Exam Neurological Exam: Alert, Awake Assessment and Plan - Assessment and Plan (Free Text) Assessment: 67F s/p segmental transverse colectomy POD#5 Plan: - Continue soft diet - poss DC on soft diet today - DC on-q pump - DC abd dressing - Further recs per Dr. Juliette Roman, PGY3 <Carroll Segovia - Last Filed: 06/11/18 17:44> Objective - Vital Signs/Intake and Output Vital Signs (last 24 hours): Temp Pulse Resp BP Pulse Ox 98.1 F 65 20 133/82 96 06/10/18 07:00 06/10/18 07:00 06/10/18 07:00 06/10/18 07:00 06/10/18 07:00 - Labs Labs: 06/09/18 06:51 06/09/18 06:51 Attending/Attestation - Attestation I have fully participated in the care of the patient.: Yes I have reviewed all pertinent clinical information, including history, physical exam and plan: Yes Notes (Text): Pt can be DC home with soft diet Local wound care c.w home meds f.u as outpt Plan d.w pt in detail
[2018-06-10 03:38] VITALS: O2SAT 96
[2018-06-10 07:44] VITALS: BP 133/82; PULSE 65; TEMP 98.1
--- NOTE | 2018-06-10 09:09 | CP.PCM.DIS ---
Provider - Provider Date of Admission: 06/05/18 05:59 Attending physician: Carroll Segovia MD Consults: 06/07/18 12:10 Wound Care [Nursing Referral for Wound Care] Routine Comment: Physician Instructions: Reason For Exam: please evaluate Time Spent in preparation of Discharge (in minutes): 45 Diagnosis - Discharge Diagnosis (1) S/P colectomy Status: Acute Hospital Course - Lab Results Lab Results: Most Recent Lab Values WBC 6.6 K/uL (4.8-10.8) 06/09/18 06:51 RBC 3.62 Mil/uL (3.80-5.20) L 06/09/18 06:51 Hgb 10.8 g/dL (11.0-16.0) L 06/09/18 06:51 Hct 31.0 % (34.0-47.0) L 06/09/18 06:51 MCV 85.7 fL (81.0-99.0) 06/09/18 06:51 MCH 29.7 pg (27.0-31.0) 06/09/18 06:51 MCHC 34.7 g/dL (33.0-37.0) 06/09/18 06:51 RDW 13.0 % (11.5-14.5) 06/09/18 06:51 Plt Count 135 K/uL (130-400) 06/09/18 06:51 MPV 9.3 fL (7.2-11.7) 06/09/18 06:51 Sodium 136 mmol/L (132-148) 06/09/18 06:51 Potassium 3.4 mmol/L (3.6-5.2) L 06/09/18 06:51 Chloride 102 mmol/L (98-107) 06/09/18 06:51 Carbon Dioxide 28 mmol/L (22-30) 06/09/18 06:51 Anion Gap 10 (10-20) 06/09/18 06:51 BUN 11 mg/dL (7-17) 06/09/18 06:51 Creatinine 0.7 mg/dL (0.7-1.2) 06/09/18 06:51 Est GFR ( Amer) > 60 06/09/18 06:51 Est GFR (Non-Af Amer) > 60 06/09/18 06:51 Random Glucose 77 mg/dL (65-105) 06/09/18 06:51 Calcium 8.2 mg/dl (8.6-10.4) L 06/09/18 06:51 Blood Type O POSITIVE 06/05/18 07:04 Antibody Screen Negative 06/05/18 07:04 - Hospital Course Hospital Course: Patient is a 67 yr old female with PMH who was found to have a suspicious polyp in her transverse colon. The area was tattooed during colonoscopy and patient was scheduled for discharge. Patient underwent robotic assisted laparoscopic segmental transverse colectomy with Dr. Segovia. OnQ device was utilized to improve patient pain control and was removed prior to discharge. Patient recovered well in the hospital postoperatively and was given detailed discharge instructions prior to leaving the hospital. al questions were answered to the satisfaction of the patient and explanation of limitations on lifting activity, bathing and swimming were discussed. Patient agreed to follow up in office with Dr. Segovia later this week. Vital signs were stable and within normal limits at the time of discharge. - Date & Time of H&P Date of H&P: 06/10/18 Time of H&P: 12:45 Discharge Exam - Head Exam Head Exam: NORMAL INSPECTION - Eye Exam Eye Exam: EOMI - ENT Exam ENT Exam: Mucous Membranes Moist - Respiratory Exam Respiratory Exam: NORMAL BREATHING PATTERN, UNREMARKABLE - Cardiovascular Exam Cardiovascular Exam: REGULAR RHYTHM - GI/Abdominal Exam GI & Abdominal Exam: Soft. absent: Distended, Firm, Guarding, Tenderness Additional comments: incisions cdi with steristrips in place onQ removed, dressings with gauze and tegaderm placed - Extremities Exam Extremities exam: normal capillary refill, pedal pulses present - Neurological Exam Neurological exam: Alert, Oriented x3 - Psychiatric Exam Psychiatric exam: Normal Affect, Normal Mood - Skin Skin Exam: Dry, Intact, Normal Color, Warm Discharge Plan - Discharge Medications Prescriptions: traMADol [Ultram] 50 mg PO TID #21 tab - Follow Up Plan Condition: GOOD Disposition: HOME/ ROUTINE Additional Instructions: Please follow up with Dr. Segovia within 3-5 days of discharge in his office, you will need to call to make an appointment Please do not wet your dressings for 3 days after discharge. please do not remove the steristrips from your incisions, they will come off on their own. please do not lift anything heavier than 10-15 pounds for approximately 4-6 weeks. Please follow up with your primary care doctor with 3-5 days of discharge. You have been given a prescription for Tramadol 50 Mg to be taken by mouth three times daily as needed for pain If your have return or worsening of symptoms or if any new concerning symptoms arise please return to the nearest ER for further evaluation Referrals: Carroll Segovia MD [Staff Provider] -
[2018-06-10] MEDS ORDERED: Potassium Chloride 20 mEq/15 ml LIQ UD PO ONE (13:00)
== END 2018-06-10 13:30 | disposition home or self-care (01) | DRG 331 ==
LOC: C.9S 05:59 → EDSTATUS 07:30 → C.6T 18:10
PROVIDERS: ADMIT Surgery Surgical Critical Care; ATTEND Surgery Surgical Critical Care
PROC: 0DBU4ZZ Excision of Omentum, Percutaneous Endoscopic Approach (ICD-10-PCS; 2018-06-05)
PROC: 8E0W4CZ Robotic Assisted Procedure of Trunk Region, Percutaneous Endoscopic Approach (ICD-10-PCS; 2018-06-05)
PROC: 0DTL4ZZ Resection of Transverse Colon, Percutaneous Endoscopic Approach (ICD-10-PCS; principal; 2018-06-05 07:30)
DX: D12.3 Benign neoplasm of transverse colon (principal); E66.01 Morbid (severe) obesity due to excess calories; Z68.30 Body mass index [BMI] 30.0-30.9, adult